=== PATIENT | male | born 1965 | race Caucasian/White ===

== ENCOUNTER → 2023-09-22 | Outpatient (CLI) | payer OTHER ==
[2023-09-22 09:25] LABS: Bun/Creatinine Ratio 10.1 (12.0-20.0); Calcium, Blood 8.7 mg/dL (8.5-10.1); Creatinine, Blood 1.38 mg/dL (0.60-1.20)
== END ==
LOC: LAB 08:29 → LAB SHORT 08:29
PROVIDERS: Nurse Practitioner Family
DX: R94.4 Abnormal results of kidney function studies (principal)
CPT/HCPCS: 80048

== ENCOUNTER → 2025-03-01 | Outpatient (CLI) | payer OTHER | LOC: LAB 17:56 → LAB SHORT 17:56 | DX: L08.9 Local infection of the skin and subcutaneous tissue, unspecified (principal) | CPT/HCPCS: 87070; 87077; 87147; 87186; 87205 ==